=== PATIENT | female | born 1995 | race Caucasian/White ===

== ENCOUNTER 2018-10-28 11:57 | Emergency (ER) | payer BC, SELFPAY ==
[2018-10-28 12:01] VITALS: BP 130/77; PULSE 73; RESP 16; TEMP 36.8; O2SAT 100
--- NOTE | 2018-10-28 12:23 | ED.GENADUL_ITS ---
Discharge Plan Disposition Patient Disposition: HOME Condition: Good Discharge Details Chief Complaint: Orthopedic Clinical Impression: Contusion, Sprain Primary Care Provider: [facility] Provider: Shayy Skinner Home Meds and New Rx's Prescriptions: Continued levonorgestrel-ethinyl estrad [Lessina] 0.1-20 mg-mcg Tablet 1 tab PO DAILY RF: 0 sertraline 100 mg Tablet 125 mg PO DAILY RF: 0 amoxicillin 500 mg Tablet 500 mg PO BID RF: 0 bupropion HCl 75 mg Tablet 75 mg PO DAILY RF: 0 ibuprofen 400 mg Tablet 400 mg PO PRN PRNRF: 0 Discharge Instructions Instructions: Ankle Sprain (ED), Contusion in Adults (ED) Additional Instructions: Encourage rest, ice, elevation. Tylenol and ibuprofen as needed for discomfort. Please follow-up with primary care if not improving in the next 2 weeks. Please continue to open persist. Will begin doing ankle exercises to help with strengthening as pain diminishes such as drawing the alphabet with your toes. If you develop new or worsening symptoms please seek care urgently once again. Discharge Data Discharge Date/Time-TO BE ENTERED AT DEPARTURE: 10/28/18 14:10 Medical Decision Making Patient 23-year-old female, accompanied by significant other, with chief complaint of right foot and ankle pain. Reports a prior to arrival she was rockclimbing when she fell the last 6 feet landing on her feet. Denies actual fall. States that she immediately had pain in the foot and ankle. Pain is primarily of the medial lateral malleolus with some mild pain over the proximal fifth metatarsal. She denies any pain in her heel. Denies any new pain or back. Reports that with certain movements, the pain can radiate proximally. Denies any pain in the knee. Denies any altered sensation. Took ibuprofen prior to arrival. Plan for imaging and augmentation with Tylenol. UPT negative FINDINGS: No fracture or subluxation seen. No radiologic evidence soft tissue swelling or radiopaque foreign body seen. IMPRESSION: No acute findings. FINDINGS: Soft tissue swelling is seen about the medial ankle. The ankle mortise is intact. No fracture or subluxation can be identified. No radiopaque foreign body seen. IMPRESSION: Soft tissue swelling about the medial ankle otherwise no acute findings Discussed these findings with the patient. Encourage rest, ice, elevation. Tylenol and ibuprofen as needed for discomfort. We discussed bracing techniques. Patient plans to be flying back home tomorrow. With that in mind, I feel that she would likely benefit the most from a walking boot as this will be more supportive accomplishment crutches. Patient was placed in a walking boot and found that this is not substantial enough to help with her discomfort with ambulation is requesting crutches. I advised close follow-up with primary care if pain is not improving over the next 1 to 2 weeks. She was given strict return precautions. All of her questions and concerns were addressed and she is agreement this plan. HPI General Mode of arrival: wheelchair . Date/Time Provider Initiated Documentation: 10/28/18 12:23 . Limitations to Documentation: no limitations . Information obtained by: patient, family and RN notes reviewed . History of Present Illness 23 year old F presents to the emergency department with the chief complaint of right foot and ankle pain, described as moderate, with intensity rated at 5. Quality is described as aching, and is localized to the right and lower extremity. Patient proximal. Patient started experiencing this minute(s) and it has been constant. Immobilization improves symptom(s), Movement worsens symptoms . Patient notes no other symptoms.. Patient did receive the following treatments prior to arrival, other (tylenol) Related Data Home Medications Medication Instructions Recorded Confirmed amoxicillin 500 mg PO BID 10/28/18 10/28/18 bupropion HCl 75 mg PO DAILY 10/28/18 10/28/18 ibuprofen 400 mg PO PRN PRN 10/28/18 10/28/18 levonorgestrel-ethinyl estrad 1 tab PO DAILY 10/28/18 10/28/18 [Lessina] sertraline 125 mg PO DAILY 10/28/18 10/28/18 Allergies Allergy/AdvReac Type Severity Reaction Status Date / Time No Known Allergies Allergy Unverified 10/28/18 12:07 General Stated Complaint: Orthopedic ROGELIO: 3 Review of Systems Constitutional Constitutional: Reports as per HPI, Denies chills, Denies fever(s), Denies headache(s) and Denies weakness ENT Ears, Nose, Mouth, and Throat: Denies headache(s) Cardiovascular Cardiovascular: Reports as per HPI Respiratory Respiratory: Reports as per HPI and Denies cough Musculoskeletal Musculoskeletal: Reports as per HPI and Denies tingling Integumentary/Breasts Skin/Breast: Reports as per HPI, Denies rash and Denies wounds Neurologic Neurologic: Reports as per HPI, Denies headache(s), Denies tingling, Denies paresthesias and Denies weakness [facility] Social History Smoking/Tobacco Use Status: Never Alcohol Intake: current Alcohol Intake frequency: a few times a week Drug use: Occasionally Substance use type: marijuana Do you feel safe at home: Yes Do you feel safe in your relationship?: Yes Exam Const General: cooperative, healthy appearing, comfortable, no acute distress, well developed and well groomed Nutritional Appearance: average body habitus and well nourished Orientation: alert and awake Resp Effort & Inspection: normal respiratory effort, able to speak in complete sentences and no respiratory distress Cardio Rate: regular rate Rhythm: regular rhythm Skin General skin exam: ecchymosis (Small area of ecchymosis over the lateral right foot) Neuro General: alert and awake Cognition: normal cognition Speech: speech normal Gait: gait abnormal (Brought in via wheelchair) Motor: muscle tone normal throughout Sensory Exam: no sensory deficits noted Extrem Right lower extremity: normal capillary refill, knee Details: normal to inspection, normal ROM and knee ligament exam normal; no tenderness (No pain over the proximal fibula), lower leg Details: normal to inspection and no edema; no tenderness, no localized swelling, no palpable cords and no deformity, ankle Details: normal to inspection, tenderness Location: of the lateral malleolus, of the medial malleolus and of the anterior talofibular ligament (Area of maximal discomfort); not of the achilles tendon, not anteromedially and not anterolaterally, swelling Details: laterally, no edema and ecchymosis; ROM abnormal (Limited dorsiflexion and plantarflexion), no unusual warmth, no abrasions and achilles tendon exam normal and foot Details: normal capillary refill, tenderness Location: of the dorsal foot Location: laterally; not over the Lisfranc joint and of the base of the 5th metatarsal, toes with normal ROM, no edema and vascular exam Details: dorsalis pedis pulse present, posterior tibial pulse present and normal capillary refill; no unusual warmth; ROM limited, no cyanosis and no edema Psych Appearance: grossly normal and well kempt Mental Status: mental status grossly normal Speech and Movement: speech and movement normal Course Vital Signs Vital signs: Vital Signs Temperature 36.8 C 10/28/18 12:01 Pulse 73 10/28/18 12:01 Respiratory Rate 16 10/28/18 12:01 Blood Pressure 130/77 10/28/18 12:01 Pulse Oximetry 100 10/28/18 12:01 Temperature 36.8 C 10/28/18 12:01 Temperature Source Temporal Artery Scan 10/28/18 12:01 Pulse 73 10/28/18 12:01 Respiratory Rate 16 10/28/18 12:01 Respiratory Effort Non-Labored 10/28/18 12:05 Blood Pressure 130/77 10/28/18 12:01 Blood Pressure Position Sitting 10/28/18 12:01 Pulse Oximetry 100 10/28/18 12:01 Oxygen Delivery Method Room Air 10/28/18 12:01 Oxygen Flow Rate 0 10/28/18 12:01 Pain Level 5 10/28/18 12:01
--- NOTE | 2018-10-28 12:30 | DI.RAD_ITS ---
EXAM: XR ANKLE RT COMPLETE INDICATION: medial and lateral malleolar pain after fall. TECHNIQUE: 2D digital imaging was performed. FINDINGS: Soft tissue swelling is noted over the medial malleolus. There is no evidence of a fracture or disloc ation.
--- NOTE | 2018-10-28 12:30 | DI.RAD_ITS ---
EXAM: XR FOOT RT COMPLETE INDICATION: fall, pain prox 5th. TECHNIQUE: 2D digital imaging was performed. FINDINGS: There is no evidence of a fracture or dislocation. The soft tissues appear intact.
[2018-10-28] MEDS: Acetaminophen 500 MG TAB 1000 MG PO (12:39)
--- NOTE | 2018-10-28 13:36 | DI.VRAD_ITS ---
PROCEDURE INFORMATION: Exam: XR Right Foot Complete Exam date and time: 10/28/2018 12:31 PM Clinical history: 23 years old, female; Other: Fall pain proximal 5th TECHNIQUE: Imaging protocol: XR Right foot. Views: 3 or more views. COMPARISON: No relevant prior studies available. FINDINGS: No fracture or subluxation seen. No radiologic evidence soft tissue swelling or radiopaque foreign body seen. IMPRESSION: No acute findings. Dictated and Authenticated by: Marques Boyer MD. Ordering:KIP Lucas MD
--- NOTE | 2018-10-28 13:38 | DI.VRAD_ITS ---
PROCEDURE INFORMATION: Exam: XR Right Ankle Exam date and time: 10/28/2018 12:31 PM Clinical history: 23 years old, female; Other: Medial and lateral malleolar pain after fall TECHNIQUE: Imaging protocol: XR Right ankle. Views: 3 or more views. COMPARISON: No relevant prior studies available. FINDINGS: Soft tissue swelling is seen about the medial ankle. The ankle mortise is intact. No fracture or subluxation can be identified. No radiopaque foreign body seen. IMPRESSION: Soft tissue swelling about the medial ankle otherwise no acute findings Dictated and Authenticated by: Marques Boyer MD. Ordering:KIP Lucas MD
== END 2018-10-28 14:10 | disposition home or self-care (01) ==
PROVIDERS: Emergency Provider Physician Assistant
DX: S93.401A Sprain of unspecified ligament of right ankle, initial encounter (principal); S90.31XA Contusion of right foot, initial encounter; W17.89XA Other fall from one level to another, initial encounter
CPT/HCPCS: 99284; 73610; 73630; 99282; E0114; L4361